=== PATIENT | female | born 1970 | race Caucasian/White ===

== ENCOUNTER 2018-08-21 17:18 | Emergency (ER) | payer BC, SELFPAY ==
[2018-08-21 17:55] VITALS: BP 143/88; PULSE 78; RESP 16; TEMP 37.4; O2SAT 98
[2018-08-21 18:42] LABS: Bilirubin Negative (Negative); Blood Negative (Negative); Clarity Clear; Glucose Negative (Negative); Ketones Negative (Negative); Leukocyte Esterase Negative (Negative); Nitrite Negative (Negative); Urobilinogen 0.2 EU/dL (Up TO 0.2)
--- NOTE | 2018-08-21 22:12 | W.ED.GENAD ---
Discharge Plan Disposition Patient Disposition: HOME Condition: Good Discharge Details Chief Complaint: Sorethroat Clinical Impression: Symptomatic urinary tract infection Primary Care Provider: Urmila Carr ED Provider: Yaron Solorzano Home Meds and New Rx's Prescriptions: New cephalexin 500 mg tablet 500 mg PO BID Qty: 14 RF: 0 No Action oxybutynin chloride 5 MG tablet extended release 24hr 5 mg PO DAILY Qty: 90 RF: 4 trimethoprim 100 MG tablet 100 mg PO HS Qty: 90 RF: 2 metformin 500 MG tablet 1,000 mg PO BID Qty: 60 RF: 1 levonorgestrel [Mirena] 1 EACH intrauterine device 1 ea Intrauterine ONCE Qty: 1 RF: 0 methylphenidate HCl [Concerta] 54 MG tablet extended release 24hr 74 mg PO DAILY RF: 0 betamethasone dipropionate 15 GM cream 15 gm Topical DIRECTED RF: 0 Discharge Instructions Instructions: Urinary Tract Infection in Women (ED) Additional Instructions: Please follow-up with Dr. Padgett as soon as possible for reassessment. Please take the antibiotic as directed. Please drink 8-10 cups of water per day. If you notice any worsening of your symptoms, or any new symptoms such as vomiting, diarrhea, fever, chills, shortness of breath, chest pain, numbness, weakness, or fainting , please return immediately to the emergency department for reevaluation. Please follow up with your primary care provider as soon as possible for reassessment and reevaluation. As always, it was a pleasure participating in your medical care today. Referrals: Eduardo Padgett MD [ [facility] STAFF PHYSICIAN] - Discharge Data Discharge Date/Time-TO BE ENTERED AT DEPARTURE: 08/21/18 19:07 Medical Decision Making This is a 48-year-old female with no significant past medical history except for polycystic ovarian syndrome, chronic UTIs, Bactrim 100 mg daily and previous perinephric abscess, who presents today for evaluation of upper respiratory infection symptoms with associated urinary urgency. In regards to her upper respiratory symptoms been present for the last 3 days, associated with congestion, mild sore throat, and a mild cough. Lung sounds demonstrate no signs of crackles or rales. Physical exam demonstrates no significant flank or abdominal tenderness. Throat demonstrates minimal erythema but no evidence of significant tonsillar exudates. Urinalysis shows no evidence of clear urinary tract infection however review of previous urinalyses does show similar findings with eventual cultures being positive. The patient assures me that her symptoms are consistent with her previous UTIs. Strep is negative for any signs of strep throat. We will send for culture. Patient will be started on Keflex for suspected UTI with close follow-up with [facility]. I feel that with the patient's reliability, her history, and her symptomatology this is reasonable at this time. We discussed red flags which to return, the importance of hydration the patient understands. I have extensively reviewed the treatment plan and discharge instructions with the patient. I have addressed all patient concerns at this time. The patient was made aware of what symptoms to monitor for that would warrant a return to the emergency department. Discussed the plan with the patient, they demonstrate verbal understanding and agreement with our assessment and plan at this time. HPI General Date/Time Provider Initiated Documentation: 08/21/18 18:38. HPI Narrative: This is a 48-year-old female with past medical history of chronic UTIs, polycystic ovarian syndrome, a previous renal abscess, who sees Dr. Padgett and takes chronic 100 mg Bactrim daily. She presents today with complaint of upper respiratory symptoms and urinary urgency. She states that for the last 2-3 days she has had a mild sore throat, she saw some white patches on her posterior oropharynx, she has had associated chills. She admits to a mild cough. She denies any documented fever at home. She denies any difficulty eating or drinking. Regards to her urinary urgency she states that she has had mild increase in urgency, no significant dysuria, no increase in urinary frequency. She states that this is how her urinary tract infections usually present. She is very clear that she has had urinary tract infections in the past with the negative urinalyses, however cultures do return positive. She states that Dr. Padgett is specifically made notation of this in the past. She states that the symptoms are exactly how her other urinary tract infections often present. Patient denies any significant flank pain, vomiting, diarrhea, history of kidney stones, chest pain, shortness of breath. She denies any neck pain or significant headache. She has no other complaints at this time. Related Data Home Medications Medication Instructions Recorded Confirmed methylphenidate HCl [Concerta] 74 mg PO DAILY 07/19/17 10/12/17 betamethasone dipropionate 15 gm TOPICAL DIRECTED 10/09/17 10/09/17 oxybutynin chloride 5 mg PO DAILY #90 tab-cap 04/13/18 trimethoprim 100 mg PO HS #90 tab 05/01/18 metformin 1,000 mg PO BID #60 tab-cap 05/08/18 levonorgestrel [Mirena] 1 ea INTRAUTERINE ONCE #1 implant 06/25/18 cephalexin 500 mg PO BID #14 tab 08/21/18 Previous Rx's Medication Instructions Recorded oxybutynin chloride 5 mg PO DAILY #90 tab-cap 04/13/18 trimethoprim 100 mg PO HS #90 tab 05/01/18 metformin 1,000 mg PO BID #60 tab-cap 05/08/18 cephalexin 500 mg PO BID #14 tab 08/21/18 Allergies Allergy/AdvReac Type Severity Reaction Status Date / Time No Known Allergies Allergy Unverified 06/25/18 16:06 General Stated Complaint: Sorethroat SYED: 3 Review of Systems Review of Systems All systems reviewed & are unremarkable except as noted in HPI and below PFSH Social History Smoking/Tobacco Use Status: Current every day Exam Narrative Exam Narrative: 1.Const: Well-nourished, Well-developed, appearing stated age 2.Eyes: PERRL, no conjunctival injection, and symmetrical lids. 3.ENT: Atraumatic external nose and ears. Moist MM. Neck: Symmetric, trachea midline, No thyromegaly. Mild erythema in the posterior oropharynx. No significant tonsillar exudates. Tonsils are not enlarged. No evidence of otitis media or otitis externa on exam. Tympanic membranes tao and pearly. Patient demonstrates good movement of cervical neck. There is no nuchal rigidity, no nuchal tenderness. Patient is able to flex the neck without any difficulty or significant pain. Negative Kernig's and Brudzinski sign. 4.CVS: +S1/S2, No murmurs or gallops. Peripheral pulses 2+ and equal in all extremities. Brisk capillary refill in all extremities. 5.RESP: Unlabored respiratory effort. Clear to auscultation bilaterally. No wheezes rales or rhonchi 6.GI: Soft, Nontender/Nondistended, No hepatosplenomegaly. No guarding or rebound. No significant flank or CVA tenderness. 7.MSK: Normocephalic/Atraumatic, Extremities w/o deformity or ttp No cyanosis or clubbing, Normal movement of all extremities 8.Skin: Warm, Dry. No rashes or lesions. 9.Neuro: chief mate II-XII grossly intact. Sensation grossly intact, no focal neurologic deficits. 10.Psych: (AAO) x3. Appropriate mood and affect Course Vital Signs Temperature 37.4 C 08/21/18 17:55 Pulse 78 08/21/18 17:55 Respiratory Rate 16 08/21/18 17:55 Blood Pressure 143/88 H 08/21/18 17:55 Pulse Oximetry 98 08/21/18 17:55 Temperature 37.4 C 08/21/18 17:55 Temperature Source Temporal Artery Scan 08/21/18 17:55 Pulse 78 08/21/18 17:55 Respiratory Rate 16 08/21/18 17:55 Respiratory Effort Non-Labored 08/21/18 18:00 Blood Pressure 143/88 H 08/21/18 17:55 Blood Pressure Position Sitting 08/21/18 17:55 Pulse Oximetry 98 08/21/18 17:55 Pain Level 8 08/21/18 17:55 Lab/Test Results Lab/Test Results: 08/21/18 18:02 Tonsil - Not Specified Streptococcus Screen (GREG) - Pending Laboratory Tests Range/Units 08/21/18 18:04 Urine Color (Yellow) Yellow Urine Clarity Clear Urine pH (5-8) 7.0 Ur Specific [place] (1.005-1.025) 1.020 Urine Protein (Negative) mg/dL Negative Urine Ketones (Negative) mg/dL Negative Urine Blood (Negative) Negative Urine Nitrite (Negative) Negative Urine Bilirubin (Negative) Negative Urine Urobilinogen (Up TO 0.2) EU/dL 0.2 Ur Leukocyte Esterase (Negative) Negative Urine Glucose (Negative) mg/dL Negative POC- Test(urine) Negative POC Strep Test-PAUL(Rapid) Start: 08/21/18 17:55 Freq: Status: Active Protocol: Document 08/21/18 18:20 TB (Rec: 08/21/18 18:20 TB [id number]) Strep test-PAUL(Rapid)-POC POC-Strep test-PAUL (Rapid) Negative POC-Strep test-PAUL (Rapid) Negative
--- NOTE | 2018-08-21 22:16 | ED.GENADUL_ITS ---
Discharge Plan Disposition Patient Disposition: HOME Condition: Good Discharge Details Chief Complaint: Sorethroat Clinical Impression: Symptomatic urinary tract infection Primary Care Provider: Urmila Carr ED Provider: Yaron Solorzano Home Meds and New Rx's Prescriptions: New cephalexin 500 mg tablet 500 mg PO BID Qty: 14 RF: 0 No Action oxybutynin chloride 5 MG tablet extended release 24hr 5 mg PO DAILY Qty: 90 RF: 4 trimethoprim 100 MG tablet 100 mg PO HS Qty: 90 RF: 2 metformin 500 MG tablet 1,000 mg PO BID Qty: 60 RF: 1 levonorgestrel [Mirena] 1 EACH intrauterine device 1 ea Intrauterine ONCE Qty: 1 RF: 0 methylphenidate HCl [Concerta] 54 MG tablet extended release 24hr 74 mg PO DAILY RF: 0 betamethasone dipropionate 15 GM cream 15 gm Topical DIRECTED RF: 0 Discharge Instructions Instructions: Urinary Tract Infection in Women (ED) Additional Instructions: Please follow-up with Dr. Padgett as soon as possible for reassessment. Please take the antibiotic as directed. Please drink 8-10 cups of water per day. If you notice any worsening of your symptoms, or any new symptoms such as vomiting , diarrhea, fever, chills, shortness of breath, chest pain, numbness, weakness, or fainting , please return immediately to the emergency department for reevaluation. Please follow up with your primary care provider as soon as possible for reassessment and reevaluation. As always, it was a pleasure participating in your medical care today. Referrals: Eduardo Padgett MD [ [facility] STAFF PHYSICIAN] - Discharge Data Discharge Date/Time-TO BE ENTERED AT DEPARTURE: 08/21/18 19:07 Medical Decision Making This is a 48-year-old female with no significant past medical history except for polycystic ovarian syndrome, chronic UTIs, Bactrim 100 mg daily and previous perinephric abscess, who presents today for evaluation of upper respiratory infection symptoms with associated urinary urgency. In regards to her upper respiratory symptoms been present for the last 3 days, associated with congestion, mild sore throat, and a mild cough. Lung sounds demonstrate no signs of crackles or rales. Physical exam demonstrates no significant flank or abdominal tenderness. Throat demonstrates minimal erythema but no evidence of significant tonsillar exudates. Urinalysis shows no evidence of clear urinary tract infection however review of previous urinalyses does show similar findings with eventual cultures being positive. The patient assures me that her symptoms are consistent with her previous UTIs. Strep is negative for any signs of strep throat. We will send for culture. Patient will be started on Keflex for suspected UTI with close follow-up with Day[facility]. I feel that with the patient's reliability, her history, and her symptomatology this is reasonable at this time. We discussed red flags which to return, the importance of hydration the patient understands. I have extensively reviewed the treatment plan and discharge instructions with the patient. I have addressed all patient concerns at this time. The patient was made aware of what symptoms to monitor for that would warrant a return to the emergency department. Discussed the plan with the patient, they demonstrate verbal understanding and agreement with our assessment and plan at this time. HPI General Date/Time Provider Initiated Documentation: 08/21/18 18:38 . HPI Narrative: This is a 48-year-old female with past medical history of chronic UTIs, polycystic ovarian syndrome, a previous renal abscess, who sees Dr. Padgett and takes chronic 100 mg Bactrim daily. She presents today with complaint of upper respiratory symptoms and urinary urgency. She states that for the last 2-3 days she has had a mild sore throat, she saw some white patches on her posterior oropharynx, she has had associated chills. She admits to a mild cough. She denies any documented fever at home. She denies any difficulty eating or drinking. Regards to her urinary urgency she states that she has had mild increase in urgency, no significant dysuria, no increase in urinary frequency. She states that this is how her urinary tract infections usually present. She is very clear that she has had urinary tract infections in the past with the negative urinalyses, however cultures do return positive. She states that Dr. Padgett is specifically made notation of this in the past. She states that the symptoms are exactly how her other urinary tract infections often present. Patient denies any significant flank pain, vomiting, diarrhea, history of kidney stones, chest pain, shortness of breath. She denies any neck pain or significant headache. She has no other complaints at this time. Related Data Home Medications Medication Instructions Recorded Confirmed methylphenidate HCl [Concerta] 74 mg PO DAILY 07/19/17 10/12/17 betamethasone dipropionate 15 gm TOPICAL DIRECTED 10/09/17 10/09/17 oxybutynin chloride 5 mg PO DAILY #90 tab-cap 04/13/18 trimethoprim 100 mg PO HS #90 tab 05/01/18 metformin 1,000 mg PO BID #60 tab-cap 05/08/18 levonorgestrel [Mirena] 1 ea INTRAUTERINE ONCE #1 implant 06/25/18 cephalexin 500 mg PO BID #14 tab 08/21/18 Previous Rx's Medication Instructions Recorded oxybutynin chloride 5 mg PO DAILY #90 tab-cap 04/13/18 trimethoprim 100 mg PO HS #90 tab 05/01/18 metformin 1,000 mg PO BID #60 tab-cap 05/08/18 cephalexin 500 mg PO BID #14 tab 08/21/18 Allergies Allergy/AdvReac Type Severity Reaction Status Date / Time No Known Allergies Allergy Unverified 06/25/18 16:06 General Stated Complaint: Sorethroat SYED: 3 Review of Systems Review of Systems All systems reviewed & are unremarkable except as noted in HPI and below PFSH Social History Smoking/Tobacco Use Status: Current every day Exam Narrative Exam Narrative: 1.Const: Well-nourished, Well-developed, appearing stated age 2.Eyes: PERRL, no conjunctival injection, and symmetrical lids. 3.ENT: Atraumatic external nose and ears. Moist MM. Neck: Symmetric, trachea midline, No thyromegaly. Mild erythema in the posterior oropharynx. No significant tonsillar exudates. Tonsils are not enlarged. No evidence of otitis media or otitis externa on exam. Tympanic membranes tao and pearly. Patient demonstrates good movement of cervical neck. There is no nuchal rigidity , no nuchal tenderness. Patient is able to flex the neck without any difficulty or significant pain. Negative Kernig's and Brudzinski sign. 4.CVS: +S1/S2, No murmurs or gallops. Peripheral pulses 2+ and equal in all extremities. Brisk capillary refill in all extremities. 5.RESP: Unlabored respiratory effort. Clear to auscultation bilaterally. No wheezes rales or rhonchi 6.GI: Soft, Nontender/Nondistended, No hepatosplenomegaly. No guarding or rebound. No significant flank or CVA tenderness. 7.MSK: Normocephalic/Atraumatic, Extremities w/o deformity or ttp No cyanosis or clubbing, Normal movement of all extremities 8.Skin: Warm, Dry. No rashes or lesions. 9.Neuro: travel clerk II-XII grossly intact. Sensation grossly intact, no focal neurologic deficits. 10.Psych: (AAO) x3. Appropriate mood and affect Course Vital Signs Temperature 37.4 C 08/21/18 17:55 Pulse 78 08/21/18 17:55 Respiratory Rate 16 08/21/18 17:55 Blood Pressure 143/88 H 08/21/18 17:55 Pulse Oximetry 98 08/21/18 17:55 Temperature 37.4 C 08/21/18 17:55 Temperature Source Temporal Artery Scan 08/21/18 17:55 Pulse 78 08/21/18 17:55 Respiratory Rate 16 08/21/18 17:55 Respiratory Effort Non-Labored 08/21/18 18:00 Blood Pressure 143/88 H 08/21/18 17:55 Blood Pressure Position Sitting 08/21/18 17:55 Pulse Oximetry 98 08/21/18 17:55 Pain Level 8 08/21/18 17:55 Lab/Test Results Lab/Test Results: 08/21/18 18:02 Tonsil - Not Specified Streptococcus Screen (GREG) - Pending Laboratory Tests Range/Units 08/21/18 18:04 Urine Color (Yellow) Yellow Urine Clarity Clear Urine pH (5-8) 7.0 Ur Specific [place] (1.005-1.025) 1.020 Urine Protein (Negative) mg/dL Negative Urine Ketones (Negative) mg/dL Negative Urine Blood (Negative) Negative Urine Nitrite (Negative) Negative Urine Bilirubin (Negative) Negative Urine Urobilinogen (Up TO 0.2) EU/dL 0.2 Ur Leukocyte Esterase (Negative) Negative Urine Glucose (Negative) mg/dL Negative POC- Test(urine) Negative POC Strep Test-PAUL(Rapid) Start: 08/21/18 17: 55 Freq: Status: Active Protocol: Document 08/21/18 18:20 TB (Rec: 08/21/18 18:20 TB [id number]) Strep test-PAUL(Rapid)-POC POC-Strep test-PAUL (Rapid) Negative POC-Strep test-PAUL (Rapid) Negative
== END 2018-08-21 19:07 | disposition home or self-care (01) ==
PROVIDERS: Emergency Provider Student in an Organized Health Care Education/Training Program; PCP Nurse Practitioner Family
DX: J02.9 Acute pharyngitis, unspecified (principal); N39.0 Urinary tract infection, site not specified; Z87.440 Personal history of urinary (tract) infections
CPT/HCPCS: 81025; 87880; 99283; 81003; 87081

== ENCOUNTER 2018-08-24 16:06 | Outpatient (CLI) | payer BC, SELFPAY ==
[2018-08-24 16:44] LABS: Abs Immature Grans 0.06 k/cumm (0.0-0.09); Absolute Basophil Count 0.05 k/cumm (0.0-0.2); Absolute Lymphocyte Count 2.51 k/cumm (1.2-3.4); Absolute Monocyte Count 0.75 k/cumm (0.11-0.7); Absolute Neutrophil Count 5.08 k/cumm (1.2-6.7); Basophils % 0.6; Eosinophils % 3.4; HGB 13.6 g/dL (12.0-15.5); Immature Grans % 0.7; Lymphocytes % 28.7; Mean Corpuscular Hemoglobin 32.8 pg (27.0-33.0); Mean Corpuscular Volume 96.4 fL (80-95); Mean Platelet Volume 10.6 fL (8.0-11.0); Monocytes % 8.6; Platelet Count 292 x1000/uL (130-400); RBC 4.15 m/cumm (4.00-5.20); RBC Distribution Width 12.2 % (11.7-14.6); White Blood Cell Count 8.75 k/cumm (4.4-10.8)
[2018-08-24 17:22] LABS: Anion Gap 9.2 mmol/L (3-11); BUN 17 mg/dL (7-18); CO2 26.8 mmol/L (21.0-32.0); CREATININE 1.18 mg/dL (0.55-1.02); Calcium 9.1 mg/dL (8.5-10.1); Chloride 102 mmol/L (98-107); Estimated GFR 49.31 (mL/min/1.73m2); Glucose 85 mg/dL (70-100); Potassium 4.2 mmol/L (3.5-5.1); Sodium 138 mmol/L (136-145)
== END 2018-08-24 16:26 ==
PROVIDERS: PCP Nurse Practitioner Family; Visit Provider Urology
DX: N39.0 Urinary tract infection, site not specified (principal)
CPT/HCPCS: 36415; 80048; 85025; 87086

== ENCOUNTER 2018-08-24 18:20 | Outpatient (REF) | payer BC, SELFPAY | END 2018-08-24 18:40 | LOC: LBN 18:20 | PROVIDERS: PCP Nurse Practitioner Family; Visit Provider Urology | DX: R35.0 Frequency of micturition (principal) | CPT/HCPCS: 87086 ==